=== PATIENT | female | born 1950 | race Caucasian/White ===

== ENCOUNTER → 2024-07-07 08:45 | Outpatient (REF) | payer MEDICARE, OTHER, SELFPAY | LOC: WDC 08:45 | PROVIDERS: ATTENDING PHYSICIAN Surgery; FAMILY PHYSICIAN Family Medicine | DX: R92.2 Inconclusive mammogram (principal) | CPT/HCPCS: 76641 ==

== ENCOUNTER → 2024-10-03 08:12 | Outpatient (REF) | payer MEDICARE, OTHER, SELFPAY | LOC: WDC 08:12 | PROVIDERS: ATTENDING PHYSICIAN Surgery; FAMILY PHYSICIAN Family Medicine | DX: Z12.31 Encounter for screening mammogram for malignant neoplasm of breast (principal); Z85.3 Personal history of malignant neoplasm of breast; R92.2 Inconclusive mammogram | CPT/HCPCS: 77063; 77067 ==

== ENCOUNTER → 2025-08-17 08:51 | Outpatient (REF) | payer MEDICARE, OTHER, SELFPAY | LOC: WDC 08:51 | PROVIDERS: ATTENDING PHYSICIAN Surgery; FAMILY PHYSICIAN Family Medicine | DX: R92.2 Inconclusive mammogram (principal) | CPT/HCPCS: 76641 ==

== ENCOUNTER → 2025-10-05 08:36 | Outpatient (REF) | payer MEDICARE, OTHER, SELFPAY | LOC: WDC 08:36 | PROVIDERS: ATTENDING PHYSICIAN Surgery; FAMILY PHYSICIAN Family Medicine | DX: Z12.31 Encounter for screening mammogram for malignant neoplasm of breast (principal) | CPT/HCPCS: 77063; 77067 ==